=== PATIENT | male | born 1985 | race Caucasian/White ===

== ENCOUNTER 2016-10-18 19:22 | Emergency (ER) | payer SELFPAY ==
[~2016-10-18] VITALS: Ht 165.1 cm; Wt 82.0 kg
[2016-10-18 19:22] VITALS: BP 125/81; PULSE 106; RESP 20; TEMP 98; O2SAT 98
[2016-10-18] MEDS ORDERED: BUPR150XL PO (23:02)
[2016-10-18 23:03] VITALS: BP 137/86; PULSE 84; RESP 16; TEMP 98.7; O2SAT 99
[2016-10-18] MEDS ORDERED: NAPR500 PO (23:27)
[2016-10-18] MEDS ORDERED: CLIN1CAP6 PO (23:27)
--- NOTE | 2016-10-18 23:27 | PD ---
HPI Chief Complaint: Skin Problem Time Seen by Provider: 23:07 Travel History International Travel<30 days: No Contact w/Intl Traveler<30days: No Traveled to known affect area: No History of Present Illness HPI 30-year-old male presents emergent [place] of left foot pain redness swelling and warmth. He states he first dose about 3 or 4 days ago, got progressively worse and especially today's got significant feeling worse. Swelling is improving but still like out. He's never really had trouble before. He thinks maybe got bit by a spider. 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 He otherwise has been feeling generally well and healthy. 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 He had some subjective chills but no definite fevers. No other complaints. History Past Medical History Medical History: Denies Significant Hx Tetanus Vaccination: > 5 Years Influenza Vaccination: No Social History Alcohol Use: Yes (QUIT JUN 2017) Tobacco Use: No Allergies-Medications (Allergen,Severity, Reaction): Coded Allergies: No Known Allergies (Unverified , 10/18/16) Reported Meds & Prescriptions Reported Meds & Active Scripts Active Reported Wellbutrin Xl 24 HR (Bupropion HCl) 150 Mg Tab 150 Mg PO DAILY Review of Systems Except as stated in HPI: all other systems reviewed are Neg Physical Exam Narrative GENERAL: 30 year-old man, no acute distress. SKIN: Warm and dry. CARDIOVASCULAR: Warm and well perfused. RESPIRATORY: Normal rate and effort. MUSCULOSKELETAL: Focused examination of the left portion reveals erythema and redness over the dorsum of the foot rating from the MTP joints in the toes to the mid foot. Erythema is blanching. There is warmth and some swelling. No ecchymosis or bruising. Good perfusion. NEUROLOGICAL: Awake and alert. No gross deficits. Data Data Last Documented VS Vital Signs Date Time Temp Pulse Resp B/P Pulse Ox O2 Delivery O2 Flow Rate FiO2 10/18/16 23:03 98.7 84 16 137/86 99 Room Air Orders Naproxen (Naprosyn) (10/18/16 23:30) Clindamycin Inj (Cleocin Inj) (10/18/16 23:30) MDM Medical Decision Making Medical Screen Exam Complete: Yes Emergency Medical Condition: Yes Differential Diagnosis Cellulitis, abscess, rash, other Narrative Course Medical decision making INITIAL calls a 30 year-old man who presents to the emergency department complaining of foot erythema redness pain and warmth suggestive of cellulitis. Looks otherwise well. Some subjective chills. We'll plan on parenteral antibiotics, continue clindamycin, return for any worsening symptoms. Line of erythema was marked in the midfoot. Diagnosis Primary Impression: Cellulitis of foot Additional Instructions: Take clindamycin as prescribed. Take Naprosyn as needed for pain. Keep leg elevated as much as possible over the next 48 hours. Return to the emergency department for any worsening pain redness swelling fevers or any other new or worsening symptoms. Med/Other Pt SpecificInfo: Prescription(s) given Scripts Naproxen (Naprosyn)500 Mg [id number] Mg PO BID PRN (PAIN SCALE 1 TO 10) #20 TAB Prov:Kye Gomez MD 10/18/16 Clindamycin 300 Mg [id number] Mg PO Q6H 10 Days Prov:Kye Gomez MD 10/18/16 Disposition: 01 DISCHARGE HOME Condition: Stable Kye Gomez MD Oct 18, 2016 23:27
[2016-10-18] MEDS ORDERED: NAPROXEN 500 MG TAB PO ONE (23:30)
[2016-10-18] MEDS ORDERED: CLINDAMYCIN PHOS 600 MG/4 ML VIAL IM ONE (23:30)
== END 2016-10-19 00:03 | disposition home or self-care (01) ==
LOC: NEPE 19:22
DX: L03.116 Cellulitis of left lower limb (principal); F10.21 Alcohol dependence, in remission
CPT/HCPCS: 96372